=== PATIENT | male | born 1975 | race Caucasian/White ===

== ENCOUNTER 2016-12-19 07:03 | Day surgery (SDC) | payer BC ==
[~2016-12-19] VITALS: Ht 172.7 cm; Wt 99.8 kg
[~2016-12-19 07:03] MED LIST: CLARITIN10 MG PO; FLONASE ALLERG9.9 ML BOTH NARES; LORCET 5-325 M1 EACH PO; OMEPRAZOLE40 M1 PO; ZESTRIL10 MG PO
== END 2016-12-19 08:48 | disposition home or self-care (01) ==
LOC: PAIN 07:03 → SDC 07:45 → PAIN 07:45
DX: M47.816 Spondylosis without myelopathy or radiculopathy, lumbar region (principal); M54.5 Low back pain; F41.9 Anxiety disorder, unspecified; G47.30 Sleep apnea, unspecified; Z87.891 Personal history of nicotine dependence; K21.9 Gastro-esophageal reflux disease without esophagitis; I10 Essential (primary) hypertension
CPT/HCPCS: 93005; J1030; J2250; J3010; S0020

== ENCOUNTER 2017-01-18 07:26 | Day surgery (SDC) | payer BC ==
[~2017-01-18] VITALS: Ht 172.7 cm; Wt 99.8 kg
== END 2017-01-18 09:10 | disposition home or self-care (01) ==
LOC: PAIN 07:26 → SDC 08:00 → PAIN 08:00
DX: M47.896 Other spondylosis, lumbar region (principal); M54.16 Radiculopathy, lumbar region; I10 Essential (primary) hypertension; F41.1 Generalized anxiety disorder; G47.30 Sleep apnea, unspecified; Z87.891 Personal history of nicotine dependence; K21.9 Gastro-esophageal reflux disease without esophagitis
CPT/HCPCS: J1030; J2250; J3010; S0020

== ENCOUNTER 2017-04-12 08:57 | Day surgery (SDC) | payer BC ==
[~2017-04-12] VITALS: Ht 172.7 cm; Wt 99.8 kg
[~2017-04-12 08:57] MED LIST changes: +ZANAFLEX4 M1 PO
== END 2017-04-12 10:15 | disposition home or self-care (01) ==
LOC: PAIN 08:57 → SDC 10:00 → PAIN 10:15
PROC: 015B3ZZ Destruction of Lumbar Nerve, Percutaneous Approach (ICD-10-PCS; principal; 2017-04-12)
DX: M47.26 Other spondylosis with radiculopathy, lumbar region (principal); F41.9 Anxiety disorder, unspecified; M43.16 Spondylolisthesis, lumbar region; Z87.891 Personal history of nicotine dependence; I10 Essential (primary) hypertension; J30.9 Allergic rhinitis, unspecified; G47.30 Sleep apnea, unspecified; K22.70 Barrett's esophagus without dysplasia; K21.9 Gastro-esophageal reflux disease without esophagitis; E66.9 Obesity, unspecified; Z68.35 Body mass index [BMI] 35.0-35.9, adult
CPT/HCPCS: J1030; J2250; J3010; S0020

== ENCOUNTER 2017-04-19 08:51 | Day surgery (SDC) | payer BC ==
[~2017-04-19] VITALS: Ht 172.7 cm; Wt 99.8 kg
== END 2017-04-19 10:32 | disposition home or self-care (01) ==
LOC: PAIN 08:51 → SDC 10:00 → PAIN 10:32
PROC: 015B3ZZ Destruction of Lumbar Nerve, Percutaneous Approach (ICD-10-PCS; principal; 2017-04-19)
DX: M47.26 Other spondylosis with radiculopathy, lumbar region (principal); F41.9 Anxiety disorder, unspecified; M43.16 Spondylolisthesis, lumbar region; Z87.891 Personal history of nicotine dependence; K22.70 Barrett's esophagus without dysplasia; J30.9 Allergic rhinitis, unspecified; G89.29 Other chronic pain; M54.2 Cervicalgia; K21.9 Gastro-esophageal reflux disease without esophagitis; I10 Essential (primary) hypertension; E66.9 Obesity, unspecified; Z68.35 Body mass index [BMI] 35.0-35.9, adult; G47.30 Sleep apnea, unspecified
CPT/HCPCS: J1030; J2250; J3010; S0020

== ENCOUNTER 2017-11-07 03:55 | Inpatient (IN) | payer BC ==
[~2017-11-07] VITALS: Ht 170.2 cm; Wt 109.3 kg
[~2017-11-07 03:55] MED LIST changes: +LORTAB 7.5-3251 EACH PO; +PROTONIX40 MG PO
[2017-11-07 06:11] VITALS: BP 116/75
[2017-11-07 12:03] VITALS: BP 125/57
[2017-11-07 12:50] VITALS: BP 125/57
[2017-11-07 15:46] VITALS: BP 113/61
[2017-11-07 19:42] VITALS: BP 107/64
[2017-11-07 23:29] VITALS: BP 101/59
[2017-11-08 07:32] VITALS: BP 97/64
[2017-11-08 15:10] VITALS: BP 113/70
== END 2017-11-08 16:26 | disposition home or self-care (01) | DRG 460 ==
LOC: ENRESERV 03:55 → 2SOUTH 05:09 → 3EAST 05:32 → ENRESERV 09:44 → 2SOUTH 12:00 → 3EAST 12:02 → 2SOUTH 13:09 → 3EAST 11-08 16:26
DX: M43.17 Spondylolisthesis, lumbosacral region (principal); M51.16 Intervertebral disc disorders with radiculopathy, lumbar region; I10 Essential (primary) hypertension; K21.9 Gastro-esophageal reflux disease without esophagitis; J44.9 Chronic obstructive pulmonary disease, unspecified; Z87.891 Personal history of nicotine dependence
CPT/HCPCS: 72100; 76000; 86850; 86900; 86901; J0690; J1100; J1170; J2250; J2270; J2710; J3010; J3480